=== PATIENT | male | born 1995 | race African-American/Black ===

== ENCOUNTER 2020-12-06 16:26 | Emergency (ER) | payer OTHER ==
[~2020-12-06] VITALS: Ht 182.9 cm; Wt 65.8 kg
[2020-12-06 16:40] VITALS: BP 124/79
--- NOTE | 2020-12-06 16:42 | NUR ---
ED Nurse Note: pt was at work and accidently sprayed fuel injector into his left eye. he stated he flushed his eyes out at the eye wash station. he stated at first he couldn't see but now he can. no pain just feels like something scratchy is in it.
[2020-12-06] MEDS ORDERED: Tetracaine 0.5% Opth 4ml Soln LEFT EYE ONE (16:45)
[2020-12-06] MEDS ORDERED: Fluorescein Strips LEFT EYE ONE (16:45)
--- NOTE | 2020-12-06 16:55 | Emergency Room Report ---
History of Present Illness General Chief Complaint: Eye Problems Source: Patient Present Illness HPI 25-year-old male with no symptom past medical history here complaining of left eye irritation that happened at work prior to arrival. 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 Denies any blurry vision photophobia at this time. Denies excess amount of pain. Has good visual acuity. Reports that his job sent him here for evaluation. Denies any Dizziness. Denies foreign body sensation. Slight amount of redness. No periorbital cellulitis noted. No obvious foreign body noted. Patient is up-to-date with tetanus shot. Allergies: Coded Allergies: No Known Allergies (Unverified , 12/06/20) COVID-19 Screening Contact w/high risk pt: No Experienced COVID-19 symptoms?: No COVID-19 Testing performed CARDIOLOGY COORDINATOR: No Patient History Past Medical History: see triage record Past Surgical History: none Pertinent Family History: none Immunizations: UTD Reviewed Nursing Documentation: PMH: Agreed; PSxH: Agreed Nursing Documentation-PMH Past Medical History: No Stated History Review of Systems All Other Systems: negative except mentioned in HPI Physical Exam Vital Signs Date Time Temp Pulse Resp B/P (MAP) Pulse Ox O2 Delivery O2 Flow Rate FiO2 12/06/20 16:36 98.8 71 18 124/79 (94) 100 Room Air Sp02 EP Interpretation: reviewed, normal Head: normocephalic, atraumatic Eyes: left eye other - Of conjunctival injection, no abrasion or ulceration noted, no foreign body noted upon visualization of the left eye with Ardon lamp ENT: hearing grossly normal, normal pharynx, no angioedema, normal voice Neck: full range of motion, supple/symm/no masses Respiratory: no retraction, no accessory muscle use Cardiovascular #1: regular rate, rhythm, no edema Gastrointestinal: soft Musculoskeletal: back normal Neurologic: alert, oriented Psychiatric: judgement/insight normal, memory normal, mood/affect normal, no suicidal/homicidal ideation Skin: no rash Lymphatic: no adenopathy Medical Decision Making PA Attestation All diagnoses and treatment plans were reviewed and discussed with my supervising physician Dr. Alonso Diagnostic Impression: Primary Impression: Chemical conjunctivitis of left eye ER Course 25-year-old male with no symptom past medical history here complaining of left eye irritation that happened at work prior to arrival. 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 Denies any blurry vision photophobia at this time. Denies excess amount of pain. Has good visual acuity. Reports that his job sent him here for evaluation. Denies any Dizziness. Denies foreign body sensation. Slight amount of redness. No periorbital cellulitis noted. No obvious foreign body noted. Patient is up-to-date with tetanus shot. Ddx considered but are not limited to: bacterial conjunctivitis, allergic conjunctivitis, viral conjunctivitis, periorbital cellulitis, global trauma Vital signs: are WNL, pt. is afebrile H&PE are most consistent with: Chemical conjunctivitis left eye ORDERS: Ofloxacin ophthalmic precautions ED INTERVENTIONS: Wood lamp use with fluorescein strips and tetracaine, no foreign body or abrasion noted DISCHARGE: At this time pt. is stable for d/c to home. Will provide printed patient care instructions, and any necessary prescriptions. Care plan and follow up instructions have been discussed with the patient prior to discharge. Take medication as directed, wear protective sunglasses, if worsening symptoms return to the emergency room Last Vital Signs Date Time Temp Pulse Resp B/P (MAP) Pulse Ox O2 Delivery O2 Flow Rate FiO2 12/06/20 16:40 98.8 18 124/79 100 Room Air 12/06/20 16:36 71 Disposition: HOME, SELF-CARE Condition: Stable Scripts Ofloxacin (Ofloxacin) 5 Ml Drops 2 DROP OP Q6HR for 7 Days, #5 ML Prov: Иван Nieves 12/06/20 Patient Instructions: Chemical Conjunctivitis Additional Instructions: Take medication as directed, use a protective sunglasses, avoid rubbing eyes, follow with backup sawyer, if worsening symptoms return to the emergency room Иван Nieves Dec 06, 2020 16:55
[2020-12-06] MEDS ORDERED: OFLOXACIN10 ML OP (16:56)
[2020-12-06 17:00] VITALS: BP 125/78
--- NOTE | 2020-12-06 17:00 | NUR ---
ED Nurse Note: Pt cleared by health care Provider for discharge. DC instructions/prescription was given and explained to pt and verbalized understanding of teachings. All medical deviecs such as ID band removed. Pt is AAO x4, ambulatory and left with all personal belongings.
== END 2020-12-06 17:00 | disposition home or self-care (01) ==
LOC: EMR 16:52
DX: T65.891A Toxic effect of other specified substances, accidental (unintentional), initial encounter (principal); T26.92XA Corrosion of left eye and adnexa, part unspecified, initial encounter; Y93.89 Activity, other specified; Y92.89 Other specified places as the place of occurrence of the external cause
CPT/HCPCS: 99282